=== PATIENT | female | born 1990 | race Caucasian/White ===

== ENCOUNTER 2018-06-06 11:16 | Emergency (ER) | payer OTHER ==
[2018-06-06] MEDS ORDERED: ASPIRIN 81 MG TABLET, CHEWABLE PO ONE (11:49)
[2018-06-06] MEDS ORDERED: ALPRAZOLAM 0.5 MG TABLET PO ONE ×2 (11:50→13:44)
--- NOTE | 2018-06-06 11:50 | ER Document Report ---
ED Medical Screen (RME) - General Mode of Arrival: Ambulatory Information source: Patient TRAVEL OUTSIDE OF THE [place] IN LAST 30 DAYS: No <ANI SCHMIDT - Last Filed: 06/06/18 11:56> <REMI LOAIZA - Last Filed: 06/06/18 12:25> - General Chief Complaint: Chest Pain Stated Complaint: CHEST PAIN Time Seen by Provider: 06/06/18 11:44 Notes: Patient is a 27-year-old with PCOS and agoraphobia presents to the emergency department complaining of chest pain, and shortness breath. Patient describes her chest pain as a heaviness and pressure that radiates into her back, shoulders and arms. She states that she also feels weak. Patient states that she was sitting in her living room when her pain began. She states that this does not feel similar to her previous anxiety attacks. Patient denies any recent trips or a history of blood clots. Patient takes Xanax as needed further stating her last dose was yesterday. GENERAL: Alert, interacts well. No acute distress. HEAD: Normocephalic, Atraumatic. NECK: Full range of motion. Supple. Trachea midline. LUNGS: Clear to auscultation bilaterally, no wheezes, rales, or rhonchi. No respiratory distress. HEART: Mildly tachycardic. No murmurs, gallops, or rubs. ABDOMEN: Soft, non-tender. Non-distended. Bowel sounds present in all 4 quadrants. EXTREMITIES: Moves all four extremities spontaneously. PSYCH: Normal affect, normal mood. I have greeted and performed a rapid initial assessment of this patient. A comprehensive ED assessment and evaluation of the patient, analysis of test results and completion of the medical decision making process will be conducted by additional ED providers. (ANI SCHMIDT) - Related Data Allergies/Adverse Reactions: Sulfa (Sulfonamide Antibiotics) Allergy (Verified 06/06/18 11:16) Past Medical History - Social History Chew tobacco use (# tins/day): No Frequency of alcohol use: None Drug Abuse: None Renal/ Medical History: Denies: Hx Peritoneal Dialysis <ANI SCHMIDT - Last Filed: 06/06/18 11:56> - Vital signs Vitals: Temp Pulse Resp BP Pulse Ox 98.4 F 109 H 20 151/105 H 100 08/05/18 11:26 06/06/18 11:26 06/06/18 11:26 06/06/18 11:26 06/06/18 11:26 Course <ANI SCHMIDT - Last Filed: 06/06/18 11:56> - Laboratory Result Diagrams: 06/06/18 11:58 06/06/18 11:58 <REMI LOAIZA - Last Filed: 06/06/18 12:25> - Re-evaluation Re-evalutation: 06/06/18 11:50 EKG tachycardic but otherwise unremarkable, patient has history of agoraphobia, usually takes Xanax as needed for anxiety. D-dimer will be checked for possibility of PE, patient will be given Xanax to see if this helps with any of her symptoms. (REMI LOAIZA) - Vital Signs Vital signs: Temp Pulse Resp BP Pulse Ox 98.4 F 109 H 28 H 151/105 H 93 06/06/18 11:26 06/06/18 11:26 06/06/18 12:17 06/06/18 11:26 06/06/18 12:17 - Laboratory Laboratory results interpreted by me: 06/06/18 11:58 Eosinophils % 6.6 H
[2018-06-06 12:13] LABS: ABSOLUTE BASOPHILS # (AUTO) 0.1 10^3/uL (0.0-0.2); ABSOLUTE EOSINOPHILS # (AUTO) 0.6 10^3/uL (0.0-0.6); ABSOLUTE LYMPHOCYTES (AUTO) 3.7 10^3/uL (0.5-4.7); ABSOLUTE MONOCYTES (AUTO) 0.7 10^3/uL (0.1-1.4); ABSOLUTE NEUT (AUTO) 4.4 10^3/uL (1.7-8.2); BASOPHILS % (AUTO) 0.8 % (0-2); EOSINOPHILS % (AUTO) 6.6 % (0-6); HEMATOCRIT 40.8 % (36.0-47.0); HEMOGLOBIN 13.8 g/dL (12.0-15.5); MEAN CORPUSCULAR HEMOGLOBIN 27.9 pg (27.0-33.4); MEAN CORPUSCULAR HGB CONC 33.9 g/dL (32.0-36.0); MEAN CORPUSCULAR VOLUME 82 fl (80-97); MONOCYTES % (AUTO) 7.6 % (3-13); PLATELET COUNT 340 10^3/uL (150-450); RED BLOOD COUNT 4.95 10^6/uL (3.72-5.28); RED CELL DISTRIBUTION WIDTH 13.5 % (11.5-14.0); TOTAL CELLS COUNTED % (AUTO) 100 %; WHITE BLOOD COUNT 9.5 10^3/uL (4.0-10.5)
[2018-06-06 12:32] LABS: ALANINE AMINOTRANSFERASE 33 U/L (9-52); ALBUMIN 4.6 g/dL (3.5-5.0); ALKALINE PHOSPHATASE 76 U/L (38-126); ANION GAP 16 (5-19); ASPARTATE AMINO TRANSFERASE 23 U/L (14-36); BILIRUBIN,DIRECT 0.2 mg/dL (0.0-0.4); BILIRUBIN,TOTAL 0.4 mg/dL (0.2-1.3); BLOOD UREA NITROGEN 15 mg/dL (7-20); CALCIUM 9.9 mg/dL (8.4-10.2); CARBON DIOXIDE 26 mmol/L (22-30); CHLORIDE 104 mmol/L (98-107); CREATINE KINASE 70 U/L (30-135); GLUCOSE 90 mg/dL (75-110); POTASSIUM 4.4 mmol/L (3.6-5.0); SODIUM 145.5 mmol/L (137-145); TOTAL PROTEIN 7.4 g/dL (6.3-8.2)
--- NOTE | 2018-06-06 12:41 | ER Document Report ---
ED General - General Chief Complaint: Chest Pain Stated Complaint: CHEST PAIN Time Seen by Provider: 06/06/18 11:44 Mode of Arrival: Ambulatory TRAVEL OUTSIDE OF THE [place] IN LAST 30 DAYS: No - HPI Notes: Patient is a 27-year-old female with a history of PCOS, anxiety, agoraphobia who presents to the ED complaining of chest pain that is described as a tightness/heaviness, feeling of shortness of breath that occurred when she was at home sitting in her living room. No sharp pain. Heaviness was felt in her arms and her back as well. Patient states that her chest symptoms have since resolved when she was getting her blood drawn. Patient is not sure this is just her anxiety acting up, but is not typical for her anxiety. Patient states that she has been eating and drinking without any difficulties. She is urinating normally and having normal bowel movements. She has not had any prolonged immobilization, distance travel, recent surgery/trauma, smoking, IV drug use, cancer history, hormone use, or previous DVT/PE. Denies any headache , fever, neck pain, URI, sore throat, palpitations, syncope, cough, wheeze, abdominal pain, nausea/vomiting/diarrhea, urinary retention, dysuria, hematuria , loss of control of bowel or bladder, numbness/tingling, saddle anesthesia, muscle paralysis/weakness, or rash. No family hx of sudden cardiac . - Related Data Allergies/Adverse Reactions: Sulfa (Sulfonamide Antibiotics) Allergy (Verified 06/06/18 11:16) Past Medical History - General Information source: Patient - Social History Smoking Status: Never Smoker Chew tobacco use (# tins/day): No Frequency of alcohol use: None Drug Abuse: None Family History: Reviewed & Not Pertinent Patient has suicidal ideation: No Patient has homicidal ideation: No Renal/ Medical History: Denies: Hx Peritoneal Dialysis Review of Systems - Review of Systems -: Yes All other systems reviewed and negative Physical Exam - Vital signs Vitals: Temp Pulse Resp BP Pulse Ox 98.4 F 109 H 20 151/105 H 100 06/06/18 11:26 06/06/18 11:26 06/06/18 11:26 06/06/18 11:26 06/06/18 11:26 - Notes Notes: PHYSICAL EXAMINATION: GENERAL: Well-appearing, well-nourished and in no acute distress. HEAD: Atraumatic, normocephalic. EYES: Pupils equal round and reactive to light, extraocular movements intact, sclera anicteric, conjunctiva are normal. ENT: Nares patent and without discharge. oropharynx clear without exudates. No tonsilar hypertrophy or erythema. Moist mucous membranes. NECK: Normal range of motion, supple without lymphadenopathy LUNGS: Breath sounds clear to auscultation bilaterally and equal. No wheezes rales or rhonchi. HEART: HR of 97-105 currently. Regular rate and rhythm without murmurs, rubs, gallops. ABDOMEN: Soft, nontender, nondistended abdomen. No guarding, no rebound. No masses appreciated. Normal bowel sounds present. No CVA tenderness bilaterally. Musculoskeletal: FROM to passive/active. Strength 5+/5. Biju neg. No asymmetry to LE's. Extremities: No cyanosis, clubbing, or edema b/l. Peripheral pulses 2+. Capillary refill less than 3 seconds. NEUROLOGICAL: Normal speech, normal gait. PSYCH: Normal mood, normal affect. SKIN: Warm, Dry, normal turgor, no rashes or lesions noted. Course - Re-evaluation Re-evalutation: 06/06/18 13:54 Patient is an afebrile, well-hydrated 27-year-old female who presents to the ED with resolved atypical chest pain and anxiety. Vitals are acceptable without any significant tachycardia, tachypnea, or hypoxia. PE is otherwise unremarkable. Patient is nontoxic-appearing and is tolerating p.o. without any difficulties. Pt is currently asymptomatic and has been since just after her arrival. CBC, CMP, EKG/cardiac enzymes, chest x-ray, and d-dimer are all unremarkable for any acute pathology. Patient has a heart score of 0, Wells score of 0, and is now PERC negative (was PERC 1 with tachycardia upon arrival) . Patient does not have any chest pain, dyspnea, or shortness of breath. Patient's presentation and symptomatology creates low suspicion for ACS, PE, pneumothorax, pericarditis, dissection, respiratory compromise, severe dehydration, sepsis, meningitis, acute intracranial pathology, or other systemic emergent condition at this time. Patient is aware that this condition can change from initial presentation and she needs to monitor symptoms closely and seek medical attention for any acute changes. Pt is feeling better and would like to go home. Adrienne has helped. Recommend conservative measures for symptoms. Recheck with your PCM in 2-3 days. Consider consult with Cardiology. Return to the ED with any worsening/concerning symptoms otherwise as reviewed in discharge. Patient is in agreement. - Vital Signs Vital signs: Temp Pulse Resp BP Pulse Ox 98.4 F 109 H 14 118/93 H 93 06/06/18 11:26 06/06/18 11:26 06/06/18 13:01 06/06/18 13:01 06/06/18 13:01 - Laboratory Result Diagrams: 06/06/18 11:58 06/06/18 11:58 Laboratory results interpreted by me: 06/06/18 06/06/18 11:58 11:58 Eosinophils % 6.6 H Sodium 145.5 H Discharge - Discharge Clinical Impression: Atypical chest pain, Anxiousness Condition: Stable Disposition: HOME, SELF-CARE Instructions: Chest Pain of Unclear Cause ([facility]) Additional Instructions: Maintain adequate fluid and food intake Take home medications as directed Low sodium/fat diet Exercise regularly Monitor blood pressure daily and keep a log Monitor symptoms for any acute changes Recheck with your PCM in 3-5 days Consider a follow-up with cardiology Return to the ED with any worsening symptoms and/or development of fever, headache, chest pain, palpitations, syncope, shortness of breath, trouble breathing, abdominal pain, n/v/d, blood in stool/urine, loss of control of bowel /bladder, urinary retention, muscle weakness/paralysis, numbness/tingling, or other worsening symptoms that are concerning to you. Forms: Elevated Blood Pressure Referrals: CHIARA STANFORD MD [ACTIVE STAFF] - Follow up as needed
[2018-06-06 12:44] LABS: CREATINE KINASE MB 0.38 ng/mL (<4.55)
[2018-06-06 12:45] LABS: TROPONIN I < 0.012 ng/mL
--- NOTE | 2018-06-06 13:05 | RADIOLOGY REPORT (SQ) ---
EXAM DESCRIPTION: CHEST SINGLE VIEW COMPLETED DATE/TIME: 06/06/2018 12:26 pm REASON FOR STUDY: chest pain, SOB COMPARISON: None. EXAM PARAMETERS: NUMBER OF VIEWS: One view. TECHNIQUE: Single frontal radiographic view of the chest acquired. RADIATION DOSE: NA LIMITATIONS: None. FINDINGS: LUNGS AND PLEURA: No acute infiltrates or effusions. . MEDIASTINUM AND HILAR STRUCTURES: No masses. Contour normal. HEART AND VASCULAR STRUCTURES: The heart is normal with normal pulmonary vasculature. . BONES: No acute findings. HARDWARE: None in the chest. OTHER: No other significant finding. IMPRESSION: No acute disease. TECHNICAL DOCUMENTATION: JOB ID: [id number] [employer]- All Rights Reserved Reading location - IP/workstation name: [email or web address]
[2018-06-06 14:29] VITALS: BP 122/76
--- NOTE | 2018-06-06 23:53 | EKG REPORT ---
SEVERITY:- BORDERLINE ECG - SINUS TACHYCARDIA BORDERLINE T ABNORMALITIES, INFERIOR LEADS : Confirmed by: Rachel Xavier 06-Jun-2018 23:52:42
== END 2018-06-06 14:30 | disposition home or self-care (01) ==
LOC: ER 11:16
DX: F41.9 Anxiety disorder, unspecified (principal); R07.89 Other chest pain; R06.02 Shortness of breath; Z88.2 Allergy status to sulfonamides
CPT/HCPCS: 36415; 71045; 80053; 82550; 82553; 84484; 84703; 85025; 85379; 93005; 93010; 99285